=== PATIENT | male | born 1945 | race Caucasian/White ===

== ENCOUNTER 2016-06-04 18:28 | Inpatient (IN) | payer MEDICARE, OTHER ==
[2016-06-04] MEDS ORDERED: Cilostazol 100 MG TAB PO ONE (18:50)
--- NOTE | 2016-06-04 18:53 | EDPRACDOC ---
- General Information Chief Complaint: Chest Pain Stated Complaint: CP PULSE RATE UP WITH PAIN IN NECK Time Seen by Provider: 06/04/16 18:45 Mode of Arrival: Car Home Medications: Home Medications Clopidogrel Bisulfate [Plavix] 75 mg PO DAILY 07/17/12 Fenofibrate,Micronized [Fenofibrate] 200 mg PO DAILY 07/17/12 Rosuvastatin Calcium [Crestor] 40 mg PO DAILY 07/17/12 Ubidecarenone [Co Q-10] 200 mg PO DAILY 12/22/14 Albuterol Sulfate [Proventil (Concentrate)] 0.5 ml NEB Q4-6H PRN 02/09/15 Cilostazol [Pletal] 50 mg PO BID 02/09/15 Tamsulosin HCl [Flomax] 0.4 mg PO DAILY 06/04/16 Allergies/Adverse Reactions: Allergies Allergy/AdvReac Type Severity Reaction Status Date / Time aspirin Allergy Mild Anaphylaxis Verified 06/04/16 19:15 * - History of Present Illness Onset: 30 min HPI: PATIENT PRESENTS WITH SOB AND LEFT SIDED CHEST PAIN THAT BEGAN WITH REST. PATIENT HAS A HX OF CAD AND HAD A STENT PLACED IN DECEMBER OF THIS LAST YEAR. PATIENT WAS DUE TO HAVE AN ABLATION FOR SVT IN THE NEXT WEEK. HE HAS BEEN HOLDING HIS PLETAL DUE TO THIS. STATES HE HAS ANAPHYLAXIS TO ASPIRIN. Chest Pain Location: Reports: Left Chest Pain Radiation: Reports: None Symptoms Occur: Reports: Suddenly Cardiac Risk Factors: Reports: Smoker, Family History, Hyperlipidemia, Hypertension Prehospital Care: Reports: None Pain Came On: Reports: Suddenly Pain Status: Resolved Pain Description: Reports: Pressure Pain Severity: Mild Pain Worsens With: Reports: Nothing Pain Improves With: Reports: Nothing Associated Signs and Symptoms: Reports: SOB ED Past Medical History - History Reviewed Yes Nurses notes reviewed and agree except as marked Travel Outside of [place] in the Last 3 Months?: No - Patient Medical History Cardiac History: Reports: Coronary Artery Disease (One stent placed approximately 13 years ago.), Hypertension, Heart Attack, Cardiac Catheterization, Hypercholesterolemia, Syncope Respiratory History: Reports: COPD, Emphysema GI/ History: Denies: Renal Disease, Gastroesophageal Reflux Musculoskeletal History: Reports: Arthritis, Osteoarthritis Psychological History: Denies: Substance Use Disorder Systemic History: Denies: Cancer, Diabetes, Hypothyroidism Surgical History: Reports: Angioplasty (Single stent placed 2001), Cardiac Catheterization, Other (Pilonidalcyst removal, 1972) - Family Medical History Reports: Hypertension, Diabetes (DTR), Cardiac Disorders (Patient's mother). Denies: Cancer, Stroke - Social Medical History Smoking Status: Heavy tobacco smoker (5 or more cigarettes/day or daily pipe/ cigar) (1-2 packs daily) Social History: Denies: Substance Use Disorder ETOH: None Substance Abuse: None Lives With: Family Lives In: Home EDM Review of Systems - Review of Systems ROS Negative Except as Marked: Yes All systems reviewed and were negative except as marked Constitutional: No Symptoms Reported. negative: Fever, Chills, Weakness, Fatigue, Loss of Appetite Eyes: No Symptoms Reported. negative: Redness, Blurred Vision, Double Vision, Discharge, Pain, Light Sensitive, Photophobia Ears: No Symptoms Reported. negative: Pain, Hearing Loss, Drainage, Ear Pulling Throat: No Symptoms Reported. negative: Pain, Swelling Nose: No Symptoms Reported. negative: Congestion, Bleeding, Discharge, Injection, Swelling, Deformity, Ecchymosis, Tender, Abrasion, Laceration Mouth: No Symptoms Reported. negative: Pain, Drooling Respiratory: No Symptoms Reported. negative: Cough, Brassy Cough, Barky Cough, Shortness of Breath, Wheezing, Hemoptysis Cardiovascular: Chest Pain. negative: Cyanosis, Edema, Orthopnea, Palpitations , PND, Syncope, Skin Mottling Gastrointestinal: No Symptoms Reported. negative: Pain, Constipation, Nausea, Vomiting, Diarrhea, Melena, Formula Intolerance Genitourinary: No Symptoms Reported. negative: Dysuria, Hematuria, Frequency, Discharge, Bleeding, Testicular Pain, Neurological: No Symptoms Reported. negative: Headache, Dizziness, Seizure, Numbness, Weakness, Speech Difficulty, Gait Difficulty Musculoskeletal: No Symptoms Reported. negative: Neck, Chestwall, Ribs, Back, Shoulder, Arm, Elbow, Forearm, Wrist, Hand, Pelvis, Hip, Femur, Knee, Leg, Ankle , Foot Integumentary: No Symptoms Reported. negative: Itching, Rash, Bruising, Wound Allergic/Immunologic: No Symptoms Reported. negative: Hives, Itching Hematologic: No Symptoms Reported. negative: Lymphadenopathy, Easy Bruising, Easy Bleeding Endocrine: No Symptoms Reported. negative: Weight Gain, Weight Loss Psychiatric: No Symptoms Reported. negative: Anxiety, Depression, Hallucinations, Insomnia, Suicidal - Physical Exam Constitutional: Alert (Awake) Oriented to: Time, Person, Place Last recorded Vital Signs: Last Vital Signs Temp 98.3 F 06/04/16 18:38 Pulse 80 06/04/16 18:38 Resp 18 06/04/16 18:38 BP 182/105 H 06/04/16 18:38 Pulse Ox 95 06/04/16 18:38 Oxygen Pulse Oxygen Saturation 95 O2 Device Oxygen Flow Rate Fraction of Inspired Oxygen ( FIO2) - HEENT Head: Normal ( normocephalic) Eye Exam: Normal (PERRL, EOMI, Sclera white) Oropharynx: Normal (Pharynx:Moist without exudate,Gums-no swelling) Tympanic Membrane: Normal ENT EAC: Normal TMJ: Normal Nose: No Symptoms Reported (septum midline) Neck: Normal (FROM, trachea at midline) - Respiratory/Cardiovascular Respiratory: Diminished Cardiovascular: Normal (RRR without murmur, gallop or rub) - GI Auscultation: Normal (NABS) Palpation: Normal (Soft,No rebound or guarding, non distended) Tenderness: Non tender Stern's Sign: Negative - Bladder: Normal - Musculoskeletal Back: Normal (Non-Tender) Extremities: Normal (Normal tone, Pulses 2+ No cyanosis or edema, FROM) - Integumentary Skin: Normal, Warm, Dry Lymphatics: Normal (no adenopathy) - Neurologic Memory Impaired: Normal Motor Function: Normal (Normal tone, Pulses 2+ No cyanosis or edema, FROM) Cranial Nerve: Normal (CN II-X11 intact sensation, strength 5/5) Cerebellar: Normal Mood Description: Normal Perception: Normal - Action ASA given in the ED: No Aspirin therapy held due to: Allergy-Intolerance ASA Patient received Beta Mayi within last 24hrs: Yes - Results 06/04/16 18:55 06/04/16 18:55 - EKG EKG #1 EKG Time: 18:30 -: Yes EKG interpreted by me Rate: bpm: 86 [place]: Normal Rhythm: NSR, PVCs Block: None Hypertrophy: None ST: Normal - Departure Yes I personally saw and evaluated the patient. Disposition: Admit IP To This Hospital Condition: Fair Final Diagnosis: COPD exacerbation, Hypoxia, Unstable angina Instructions: Chest Pain (ED) Education/Counseling Given To: Patient Education/Counseling Given Regarding: Diagnosis, Treatment, Prognosis Referrals: Wallace Nickerson MD [Primary Care Provider] - One Week Decision to Admit Time: 20:19 Decision to admit date: 06/04/16 Decision to admit: from ED - Physician Consulted Hospitalist Time Called: 20:19 Provider Called: Sung Ruiz Time [employer] Returned Call: 20:19
[2016-06-04] MEDS: NITROGLYCERINE 0.4 MG TAB SL SCH ×3 (19:02→19:15)
[2016-06-04 19:04] LABS: AUTOMATED BASOPHIL 1.5 % (0-2); AUTOMATED EOSINOPHIL 3.8 % (0-5); AUTOMATED LYMPH 24.9 % (17-44); AUTOMATED MONOCYTE 8.9 % (3-10); AUTOMATED NEUTROPHIL 60.9 % (45-76); MPV 9.5 fL (7.4-10.4)
[2016-06-04 19:07] LABS: ABG Draw Site Left Radial; ALLEN'S TEST PASS; TCO2 35.1 MMOL/L (23-27)
[2016-06-04 19:18] LABS: PARTIAL THROMB. TIME 25.1 SEC (22-35); PT-INR 1.1
[2016-06-04 19:24] LABS: BLOOD UREA NITROGEN 15 MG/DL (9-20); CALC CORRECTED 9.2 MG/DL (8.4-10.2); CALCULATED OSMOLALITY 266 MOs/Kg (270-290); CHLORIDE 94 mEq/L (98-107); GLUCOSE 87 MG/DL (70-99); SODIUM LEVEL 138 mEq/L (137-146); TOTAL PROTEIN 7.5 G/DL (6.3-8.2)
--- NOTE | 2016-06-04 19:35 | DIRPT ---
CLINICAL DATA: Chest pain EXAM: PORTABLE CHEST 1 VIEW COMPARISON: 05/05/2016 FINDINGS: Cardiomediastinal silhouette is stable. Mild hyperinflation again noted. No acute infiltrate or pleural effusion. No pulmonary edema. Atherosclerotic calcifications of thoracic aorta again noted. IMPRESSION: No active disease. Hyperinflation again noted. Atherosclerotic calcifications of thoracic aorta. Electronically Signed By: Tal Chin M.D. On: 06/04/2016 19:33
[2016-06-04] MEDS ORDERED: METHYLPREDNISOLONE 125 MG/2 ML VIAL IV ONE (20:15)
[2016-06-04] MEDS ORDERED: Albuterol/Ipratropium Neb 3 ML NEB NEB ONE (20:15)
[2016-06-04] MEDS ORDERED: MORPHINE 2 MG/ML INJECTION IV PRN (20:42)
[2016-06-04] MEDS ORDERED: NITROGLYCERINE 0.4 MG TAB SL PRN ×2 (20:42→21:00)
--- NOTE | 2016-06-04 20:48 | HISTPHYS ---
- Chief Complaint chest pain - History of Present Illness PRIMARY CARE PROVIDER: Dr. Nickerson HPI: The patient is a 71 yo man with known coronary artery disease and history of stent placement December 2015, COPD, who presents with chest pain and shortness of breath. Onset: today around 5:30 pm. Duration: intermittent. Location: substernal. Radiation: to left neck. Character: Like a dull headache. Up to 3/10. No pressure or heaviness. Alleviated by: Nothing. Exacerbated by: Exertion. Associated Symptoms: Palpitations with faster heart rate in the 100s. Chest pain. Shortness of breath rosibel with exertion. Minimal coughing and non- productive. No wheezing. No fever or chills. No weight gain or leg swelling. Treatments: none at home except usual medications. Patient has a history of SVT and is scheduled to have an ablation in [place] next week (Monday). The patient has an anaphylactic reaction to aspirin per his report. - Medical History Cardiac History: Reports: Coronary Artery Disease (One stent placed approximately 13 years ago, another in 12/2015), Hypertension, Heart Attack, Cardiac Catheterization (1 stent 13 years ago, another in 12/2015), Hypercholesterolemia, Syncope, SVT (Ablation planned for May 2016) Respiratory History: Reports: COPD, Emphysema Musculoskeletal History: Reports: Arthritis, Osteoarthritis Psychological History: Denies: Substance Use Disorder OTHER HISTORY: ECHOCARDIOGRAM 2012: EF 55-60% Diastolic filling pattern indicates impaired relaxation. Trace tricuspid regurgitation. - Surgical History Reports: Angioplasty (Single stent placed 2001), Cardiac Catheterization (2 stents. Most recent 12/2015.), Other (Pilonidalcyst removal, 1971) - Medictions/Allergies Allergies aspirin Allergy (Mild, Verified 06/04/16 19:15) Anaphylaxis* SENSITIVITY Current Medication List: Reviewed Home Medications Clopidogrel Bisulfate [Plavix] 75 mg PO DAILY 07/17/12 Fenofibrate,Micronized [Fenofibrate] 200 mg PO DAILY 07/17/12 Rosuvastatin Calcium [Crestor] 40 mg PO DAILY 07/17/12 Ubidecarenone [Co Q-10] 200 mg PO DAILY 12/22/14 Albuterol Sulfate [Proventil (Concentrate)] 0.5 ml NEB Q4-6H PRN 02/09/15 Cilostazol [Pletal] 50 mg PO BID 02/09/15 Tamsulosin HCl [Flomax] 0.4 mg PO DAILY 06/04/16 - Family History Reports: Hypertension, Diabetes (DTR), Cardiac Disorders (Patient's mother). Denies: Cancer, Stroke - Social History Smoking Status: Heavy tobacco smoker (5 or more cigarettes/day or daily pipe/ cigar) (1-2 packs daily) Social History: Denies: Alcohol Use, Substance Use Disorder - Review of Systems GENERAL: No Fever, chills, or diaphoresis. Positive for fatigue/malaise. HEENT: No ear pain or discharge. No nasal discharge or bleeding. No throat pain or swelling. No eye pain or eye redness. RESPIRATORY: Shortness of breath rosibel with exertion. Minimal coughing and non- productive. No wheezing. CARDIOVASCULAR: Has chest pain and palpitations. GI: No abdominal pain, nausea, vomiting, diarrhea, constipation, or bloody stool. NEUROLOGICAL: No headache or focal weakness. INTEGUMENT: no rashes, itching, or lesions. LYMPHATIC SYSTEM: no lymph node swelling or pain. MUSCULOSKELETAL: no pain or joint swelling. GENITOURINARY: No dysuria or hematuria. ENDOCRINE: No polyuria or polydipsia. HEME: No chronic anemia, bleeding, or easy bruising. - Physical Exam Vital Signs: Initial Vitals Temperature 98.3 F 06/04/16 18:38 Pulse Rate 80 06/04/16 18:38 Respiratory Rate 18 06/04/16 18:38 Blood Pressure 182/105 H 06/04/16 18:38 Pulse Oxygen Saturation 95 06/04/16 18:38 Vital Signs - 24 hr 06/04/16 06/04/16 06/04/16 18:38 18:56 19:09 Temperature 98.3 F Pulse Rate 80 95 102 Respiratory 18 18 18 Rate Blood Pressure 182/105 H 184/89 H 136/67 Pulse Oxygen 95 88 L 94 Saturation 06/04/16 19:15 Temperature Pulse Rate 93 Respiratory 18 Rate Blood Pressure 137/70 Pulse Oxygen 93 Saturation Weight: 109.8 kg Height: 5 feet 11 inches BMI: 33.8 - Other Exam Other Exam Findings: GENERAL: Ill-appearing, well nourished, in acute distress. HEENT: Normocephalic, atraumatic; pupils equal and round. Nares patent, without discharge or bleeding. No oropharyngeal lesions or erythema. Mucous membranes are dry. NECK: is supple, no masses, trachea midline. RESPIRATORY: Clear to auscultation bilaterally. Chest wall movements are symmetric. No use of accessory muscles to breathe. No wheezing, rales, rhonchi. Markedly decreased breath sounds bilaterally. Intermittent tachypnea. CARDIOVASCULAR: Normal S1, S2. Murmur 2/6 systolic. No rubs, or gallops. PMI non-displaced. Carotids: no carotid bruits. Mild tachycardia. DP pulses 2+ bilaterally. GI: soft, nontender, non-distended, normal active bowel sounds. No hepatosplenomegaly. INTEGUMENT: Clean, dry, and intact. No rashes. No lesions. MUSCULOSKELETAL: Moving all extremities. No cyanosis. No clubbing. Edema: 1+ lower extremity edema bilaterally. NEUROLOGICAL: Cranial nerves 2-12 grossly intact. Motor 4/5 throughout. Reflexes : 2+ bilaterally. Babinski: toes downgoing bilaterally. Intact Finger to nose. Sensory grossly intact to light touch. Intact rapid alternating movements bilaterally. No pronator drift. PSYCHIATRIC: Fully oriented. Normal and appropriate affect. LYMPHATIC: No cervical lymphadenopathy. No supraclavicular lymphadenopathy. - Lab Results Laboratory Results - last 24 hr 06/04/16 06/04/16 06/04/16 18:55 18:55 18:55 WBC 8.1 RBC 5.31 Hgb 15.9 Hct 47.8 MCV 90 MCH 30.0 MCHC 33.4 RDW 14.7 H Plt Count 179 MPV 9.5 Neut % (Auto) 60.9 Lymph % (Auto) 24.9 Parker % (Auto) 8.9 Eos % (Auto) 3.8 Baso % (Auto) 1.5 Absolute Neuts (auto) 4.86 Absolute Lymphs (auto) 1.94 PT 11.3 H INR 1.1 APTT 25.1 Puncture Site pH pCO2 pO2 HCO3 Total CO2 Base Excess FiO2 % Specimen Drawn By Sodium 138 Potassium 4.1 Chloride 94 L Carbon Dioxide 36 H Anion Gap 12 BUN 15 Creatinine 0.80 Estimated GFR (MDRD) > 60 Glucose 87 Calculated Osmolality 266 L Calcium 9.0 Corrected Calcium 9.2 Total Bilirubin 0.8 AST 33 ALT 35 Alkaline Phosphatase 68 Troponin I < 0.01 [id number] Pept 171 Total Protein 7.5 Albumin 3.8 06/04/16 19:00 WBC RBC Hgb Hct MCV MCH MCHC RDW Plt Count MPV Neut % (Auto) Lymph % (Auto) Parker % (Auto) Eos % (Auto) Baso % (Auto) Absolute Neuts (auto) Absolute Lymphs (auto) PT INR APTT Puncture Site Left radial pH 7.400 pCO2 54.0 H pO2 55.0 L HCO3 33.4 H Total CO2 35.1 H Base Excess 7.0 H FiO2 % 21 Specimen Drawn By Kaytr Sodium Potassium Chloride Carbon Dioxide Anion Gap BUN Creatinine Estimated GFR (MDRD) Glucose Calculated Osmolality Calcium Corrected Calcium Total Bilirubin AST ALT Alkaline Phosphatase Troponin I [id number] Pept Total Protein Albumin - Diagnostic Findings EK beats per minute. Sinus rhythm with PACs. Reviewed EKG personally. Chest x-ray, viewed personally: EXAM: PORTABLE CHEST 1 VIEW COMPARISON: 05/05/2016 FINDINGS: Cardiomediastinal silhouette is stable. Mild hyperinflation again noted. No acute infiltrate or pleural effusion. No pulmonary edema. Atherosclerotic calcifications of thoracic aorta again noted. IMPRESSION: No active disease. Hyperinflation again noted. Atherosclerotic calcifications of thoracic aorta. - Assessment (1) COPD exacerbation J44.1 - CHRONIC OBSTRUCTIVE PULMONARY DISEASE W (ACUTE) EXACERBATION Acute Present on Admission: Yes COPD exacerbation. Plan: Nebs of Duoneb q 6 hours scheduled and albuterol q 2 hours prn. Sputum culture ordered. Consider IV ceftriaxone and IV azithromycin. IV methylprednisolone. Continuous oxygen support. (2) Chest pain R07.9 - CHEST PAIN, UNSPECIFIED Acute Present on Admission: Yes Qualifiers: Chest pain type: C Ischemic chest pain type: I Rule out myocardial infarction. Plan: Obtain cardiac enzymes x 3. Place patient on telemetry. Give patient oxygen, aspirin. Give nitroglycerin, and morphine as needed for chest pain. Give statin. Give beta-torey and MONSE-inhibitor. Stress test has been ordered for the morning. Patient has been advised, if the stress test is negative, to follow up with the primary care provider for evaluation of other potential causes of the chest pain. (3) Acute respiratory failure with hypoxia J96.01 - ACUTE RESPIRATORY FAILURE WITH HYPOXIA Acute Present on Admission: Yes With hypoxia and hypercapnea. Patient has dyspnea and is not improving. Patient's PO2 is low at 55 and pCO2 is high at 54. Plan: Place patient on oxygen by Venti Mask 40% and increase as needed. Monitor oxygen saturation levels and keep O2 sats greater than 92%. Patient may need BiPAP. (4) Tobacco abuse Z72.0 - TOBACCO USE Chronic Present on Admission: Yes Counseled to quit. (5) Lower extremity edema R60.0 - LOCALIZED EDEMA Acute Present on Admission: Yes Qualifiers: Laterality: bilateral Qualified Code(s): R60.0 - Localized edema Patient does have some lower extremity edema but his BNP is normal at 171. Plan: Consider IV Lasix if edema worsens. (6) SVT (supraventricular tachycardia) I47.1 - SUPRAVENTRICULAR TACHYCARDIA Chronic History of SVT. Patient is scheduled to have an ablation on Monday. Given that patient is acutely ill and in respiratory failure, it is unlikely that he will be able to move forward with ablation in a few days. Was supposed to stop his Pletal prior to surgery. Consulted Dr. Bradford. - Plan In summary, this patient is acutely and critically ill. The patient requires treatment of vital organ failure and measures to prevent further life- threatening deterioration of condition. Discussed case in detail with Dr. Bradford, who will be consulting on the patient. I have spent 60 min in the critical care of this patient. Case Care Discussed with: Patient, Consultants (Dr. Bradford), Nursing Staff Total Time: 60 min Critical Care: Yes Code: 291
[2016-06-04] MEDS ORDERED: UBIDECARENONE 200 MG PO SCH (21:00)
[2016-06-04] MEDS ORDERED: Vaccine Screening Complete SCH (23:00)
[2016-06-04] MEDS: ROSUVASTATIN 40 MG PO SCH (23:40)
[2016-06-05] MEDS: CARVEDILOL 3.125 MG TAB PO SCH ×3 (01:18→21:38)
[2016-06-05] MEDS: ENOXAPARIN 60 MG/0.6 ML PFS SQ SCH ×2 (01:19→17:45)
[2016-06-05] MEDS ORDERED: SIMETHICONE 80 MG TAB PO PRN (01:47)
[2016-06-05] MEDS ORDERED: TEMAZEPAM 15 MG CAP PO PRN (01:47)
[2016-06-05] MEDS ORDERED: SENNA CONCENTRATE TAB PO PRN (01:47)
[2016-06-05] MEDS ORDERED: BENZONATATE 100 MG PERLES PO PRN (01:47)
[2016-06-05] MEDS ORDERED: BISACODYL 5 MG TAB PO PRN (01:47)
[2016-06-05] MEDS ORDERED: GUAIFEN 100 MG-DEXTROMETH 10 MG PER 5 ML PO PRN (01:47)
[2016-06-05] MEDS ORDERED: ACETAMINOPHEN 325 MG/TAB TABLET PO PRN (01:47)
[2016-06-05] MEDS ORDERED: ACETAMINOPHEN 325 MG SUPP PR PRN (01:47)
[2016-06-05] MEDS ORDERED: ALBUTEROL 0.083% 3 ML NEB NEB PRN (01:47)
[2016-06-05] MEDS ORDERED: Docusate Sodium 100 MG CAP PO PRN (01:47)
[2016-06-05] MEDS ORDERED: PROMETHAZINE 25 MG/ML VIAL IV PRN (01:47)
[2016-06-05] MEDS ORDERED: CEFTRIAXONE 1 GM in D5W 100 ML IV SCH (02:00)
[2016-06-05] MEDS ORDERED: Pharmacy Order Set Alert SCH (02:00)
[2016-06-05] MEDS ORDERED: ENOXAPARIN 40 MG/0.4 ML PFS SQ SCH (02:00)
[2016-06-05] MEDS ORDERED: FUROSEMIDE 40 MG/4 ML VIAL IV ONE (02:00)
[2016-06-05] MEDS: Albuterol/Ipratropium Neb 3 ML NEB NEB SCH ×4 (02:19→20:22)
[2016-06-05] MEDS ORDERED: AZITHROMYCIN 500 MG in D5W 250 ML IV SCH (03:00)
[2016-06-05] MEDS: METHYLPREDNISOLONE 125 MG/2 ML VIAL IV SCH ×3 (05:04→21:38)
[2016-06-05 05:38] LABS: MPV 9.6 fL (7.4-10.4)
[2016-06-05 05:51] LABS: LDL (calc.) 90.2 MG/DL (<100); VLDL (calc.) 16.8 MG/DL (5-40)
[2016-06-05 05:52] LABS: BLOOD UREA NITROGEN 16 MG/DL (9-20); CALC CORRECTED 9.4 MG/DL (8.4-10.2); CALCULATED OSMOLALITY 272 MOs/Kg (270-290); CHLORIDE 95 mEq/L (98-107); GLUCOSE 183 MG/DL (70-99); SODIUM LEVEL 138 mEq/L (137-146); TOTAL PROTEIN 6.9 G/DL (6.3-8.2)
[2016-06-05] MEDS ORDERED: REGADENOSON 0.4 MG/5 ML SYRINGE IV ONE (08:00)
[2016-06-05] MEDS ORDERED: SODIUM CHLORIDE 0.9% 10 ML FLUSH FLUSH ONE (08:00)
--- NOTE | 2016-06-05 08:38 | PCM.CARDCO ---
Consultation Date: 06/05/16 Requesting Physician: Sung Ruiz Book Solicitor: Heber Bradford Consult Reason: Chest Pain - History of Present Illness He is known to our practice with a history of SVT failing anti rhythmic therapy with sotalol and CAD with PCI and stent left circumflex artery 12/22/2014 normal left ventricular ejection fraction. Other problems of included sinus bradycardia with an illness sick sinus syndrome essential hypertension diabetes COPD and dyslipidemia discharge summary from [facility] 2015 also list paroxysmally atrial fibrillation as a diagnosis he also has a history remote PCI greater than a decade ago. My office note from August 2015 describes PCI and stent in 2001 diagonal branch low HDL and recurrent syncope. Yesterday is bothered by his heart racing often on but when he checked his oxygen saturation his pulses were 80-110 per minute. Associated this he had substernal chest pain aching relieved with nitroglycerin recurred resolved by the time he came to the hospital. He has had a mild increase in exertional dyspnea but is not having with moderate activities not coughing and wheezing. He is greater than 1 year remote from his last PCI and remains on dual anti- platelet therapy other was pleased tell was recently discontinued in anticipation of EP procedures. He is not having a pattern of typical exertional angina. His serial troponins are normal EKG is normal. Chief Complaint: chest pain - Past Medical and Surgical History Cardiac History: Reports: Coronary Artery Disease (One stent placed approximately 13 years ago, another in 12/2015), Hypertension, Heart Attack, Cardiac Catheterization (Two thousand two PCI and stent diagonal December 2014 PCI and stent LCF), Hypercholesterolemia, Syncope (Sick sinus syndrome sinus bradycardia PAF and PAT), SVT (Ablation planned for May 2016) Respiratory History: Reports: COPD, Emphysema. Denies: Pneumonia GI/ History: Denies: Renal Disease, Gastroesophageal Reflux Systemic History: Denies: Cancer, Diabetes, Hypothyroidism Musculoskeletal History: Reports: Arthritis, Osteoarthritis Psychological History: Denies: Depression, Bipolar Disorder, Alcoholism, Substance Use Disorder Past Surgical History: Reports: Angioplasty (Single stent placed 2001), Cardiac Catheterization (2 stents. Most recent 12/2015.), Other (Pilonidalcyst removal, 1971) Allergies aspirin Allergy (Mild, Verified 06/04/16 19:15) Anaphylaxis* SENSITIVITY Home Medications Clopidogrel Bisulfate [Plavix] 75 mg PO DAILY 03/05/13 Fenofibrate,Micronized [Fenofibrate] 200 mg PO DAILY 07/17/12 Rosuvastatin Calcium [Crestor] 40 mg PO DAILY 07/17/12 Ubidecarenone [Co Q-10] 200 mg PO DAILY 12/22/14 Albuterol Sulfate [Proventil (Concentrate)] 0.5 ml NEB Q4-6H PRN 02/09/15 Cilostazol [Pletal] 50 mg PO BID 02/09/15 Tamsulosin HCl [Flomax] 0.4 mg PO DAILY 06/04/16 - Social History Travel Outside of [place] in the Last 3 Months?: No Smoking Status: Heavy tobacco smoker (5 or more cigarettes/day or daily pipe/ cigar) (1-2 packs daily) Social History: Denies: Alcohol Use, Substance Use Disorder - Family History Reports: Hypertension, Diabetes (DTR), Cardiac Disorders (Patient's mother). Denies: Cancer, Stroke - Review of Systems Constitutional: No Symptoms Reported. negative: Fever, Chills, Weakness, Fatigue, Loss of Appetite - Respiratory Shortness of Breath (Not severe limit). negative: Barky Cough, Cough, Wheezing (He is a nebulizer at home) - Cardiovascular Chest Pain, Palpitations (Sensation of heart racing through the day yesterday). negative: Cyanosis, Edema, Orthopnea - Physical Exam Constitutional: Alert (Awake) Oriented to: Time, Person, Place Exam: Last Vital Signs Temp 98 F 06/05/16 07:49 Pulse 94 06/05/16 07:49 Resp 20 06/05/16 07:49 BP 157/95 06/05/16 07:49 Pulse Ox 93 06/05/16 08:00 Intake & Output 06/04/16 06/05/16 06/05/16 23:59 07:59 15:59 Intake Total 120 320 Output Total 2025 Balance 120 -1705 Patient's weight 233 lb 1 oz 234 lb 8 oz - HEENT Head: Normal (No bruit neck vein distention or thyromegaly) Eye: Normal (PERRL, EOMI, Sclera white) Oropharynx: Normal (Pharynx:Moist without exudate,Gums-no swelling) Tympanic Membrane: Normal ENT EAC: Normal TMJ: Normal Nose: No Symptoms Reported (septum midline) - Respiratory/Cardiovascular Respiratory: Diminished. negative: Rales, Rhonchi, Wheezes Cardiovascular: Other (Distant heart sounds regular rhythm no murmur no gallop) . negative: Systolic murmur, Gallop/S3, Gallop/S4 - GI Auscultation: Normal (Nondistended nontender) Palpation: Normal (Soft,No rebound or guarding, non distended) Tenderness: Non tender - Musculoskeletal Back: Normal (Non-Tender) Extremities: Normal (Normal tone, Pulses 2+ No cyanosis or edema, FROM), Calf Tenderness, Clubbing, Cyanosis, Edema, Pedal Edema, Radial Pulse. negative: Femoral Pulse (Diminished bilaterally), Pedal Pulse (Diminished bilaterally) - Integumentary Skin: Normal, Other (No xanthoma or xanthelasma). negative: Pale, Petechiae Lymphatics: Normal (no adenopathy) - Neurologic Memory Impaired: Normal Cerebellar: Normal Mood Description: Normal Perception: Normal - Lab Results Laboratory Tests 06/04/16 06/04/16 06/04/16 18:55 19:00 21:30 WBC Hgb Hct pH 7.400 pCO2 54.0 H pO2 55.0 L Potassium Creatinine Estimated GFR (MDRD) Troponin I < 0.01 < 0.01 LDL Cholesterol, Calc 06/05/16 06/05/16 06/05/16 05:08 05:08 05:08 WBC 6.1 Hgb 15.1 Hct 45.3 pH pCO2 pO2 Potassium 4.2 Creatinine 0.80 Estimated GFR (MDRD) > 60 Troponin I LDL Cholesterol, Calc 90.2 EKG today normal. He has not had ischemic ST-T changes - Assessment/Plan (1) Chest pain R07.9 - CHEST PAIN, UNSPECIFIED Acute unspecified I R07.9 - Chest pain, unspecified Comment: Best described is atypical angina, he has undergone myocardial perfusion imaging and he has evidence of ischemia at require coronary arteriography prior to his EP procedures. I will wait results and continues current medical therapy with single anti-platelet clopidogrel, beta-torey and a high intensity statin. He is greater 1 year remote from his PCI and I do not think he will need to remain on dual anti-platelet night continue on long-term on clopidogrel with his aspirin intolerance. (2) SVT (supraventricular tachycardia) I47.1 - SUPRAVENTRICULAR TACHYCARDIA Chronic Present on Admission: No Comment: Telemetry short strip show assured a short episode of atrial tachycardia not rapid I suspect this is what is happening at home and apical continue his low- dose beta-torey and await his EP procedures for paroxysmally atrial fibrillation. (3) Coronary artery disease I25.10 - ATHSCL HEART DISEASE OF [place] CORONARY ARTERY W/O ANG PCTRS Chronic [place] coronary artery [place] heart with unstable angina pectoris Comment: Continue current treatment away results of myocardial perfusion study. He is not having acute coronary syndrome (4) Hypercholesterolemia E78.0 - PURE HYPERCHOLESTEROLEMIA * DO NOT USE * Chronic Comment: Stable continue statin (5) Hypertension I10 - ESSENTIAL (PRIMARY) HYPERTENSION Chronic essential hypertension I10 - Essential (primary) hypertension Comment: Stable new treatment including MONSE-inhibitor with CAD
[2016-06-05] MEDS ORDERED: Non-Formulary Medication ITEM (Fenofibrate,Micronized [Fenofibrate] 200 MG) PO SCH (09:00)
[2016-06-05] MEDS ORDERED: SESTAMIBI 8 MCI V IV ONE (09:43)
[2016-06-05] MEDS: CLOPIDOGREL 75 MG TAB PO SCH (12:22)
[2016-06-05] MEDS: FENOFIBRATE 145 MG TAB PO SCH (12:22)
[2016-06-05] MEDS: LISINOPRIL 5 MG TAB PO SCH (12:22)
[2016-06-05] MEDS: Cilostazol 100 MG TAB PO SCH ×2 (12:23→17:45)
[2016-06-05] MEDS: TAMSULOSIN HCL 0.4 MG CAP PO SCH (12:23)
--- NOTE | 2016-06-05 13:10 | DIRPT ---
CLINICAL DATA: Chest pain EXAM: NM LEXISCAN CARDIOLITE TECHNIQUE: Cardiolite cardiac stress Test Lexiscan protocol RADIOPHARMACEUTICALS: Eight in 25 millicuries TC 99 M Cardiolite COMPARISON: None. FINDINGS: A Cardiolite cardiac stress Test Lexiscan protocol was performed. The stress portion of the test was supervised by Dr. Bradford. I reviewed the images with him. There is inferior basal wall scarring. Inferior basal hypokinesia. Ischemia is noted inferior apical wall. Normal contractility. Left ventricle ejection fraction is 68%. IMPRESSION: There is inferior basal wall scarring. Inferior basal hypokinesia. Ischemia is noted inferior apical wall. Normal contractility. Left ventricle ejection fraction is 68%. Electronically Signed By: Tal Chin M.D. On: 06/05/2016 13:07
--- NOTE | 2016-06-05 14:13 | PCM.STRESS ---
This is a Lexiscan Cardiolite test. Patient received a standard dose of Lexiscan. The resting heart rate and blood pressure, 97 beats per minute 120/80. The resting EKG shows sinus rhythm and is normal. The peak heart rate and blood pressure, 108 beats per minute 126/82. The stress EKG ST segment response is normal to 73% of the maximum predicted heart rate of 147 beats per minute. The blood pressure response is normal. The rhythm is sinus, there is no arrhythmia. Symptoms present include flushing and shortness of breath transiently. The radiologist will generate the Cardiolite image report.
--- NOTE | 2016-06-05 15:32 | GENMEDPROG ---
Chief Complaint: Right side chest pain and shortness of breath with minimal exertion. Notes Reviewed: Yes Events from last night noted and discussed with Clinical Staff Current Medication List: Reviewed DVT Prophylaxis: Yes - Physical Examination Vital Signs and I&O: Last Vital Signs Temp 97.6 F 06/05/16 11:42 Pulse 103 06/05/16 14:00 Resp 20 06/05/16 11:42 BP 164/87 06/05/16 11:42 Pulse Ox 95 06/05/16 11:42 Oxygen Pulse Oxygen Saturation 95 O2 Device Nasal Cannula Oxygen Flow Rate 3 Fraction of Inspired Oxygen ( FIO2) Intake & Output 06/02/16 06/03/16 06/04/16 06/05/16 23:59 23:59 23:59 23:59 Intake Total 120 320 Output Total 2225 Balance 120 -1905 Patient's weight 105.715 kg 106.367 kg General: Alert, Oriented x3, No acute distress, Well appearing, Well nourished HEENT: Normal (Normocephalic, atraumatic;EOMI.Sclera white, Nares patent, without discharge or bleeding. No oropharyngeal lesions or erythema. Mucous membranes are dry.) Neck: Non-tender, Normal Trachea alignment, Normal inspection (No cervical lymphadenopathy. No supraclavicular lymphadenopathy.), No Masses palpable, Limited range of motion, Supple Lymphatics: Normal (no adenopathy) Respiratory: Diminished. negative: Rales, Rhonchi, Wheezes Cardiovascular: Normal S1, No Gallops,Rubs/Murmurs, Normal S2, Good Pedal Pulses (DP pulses 2+ bilaterally), Irregular. negative: Regular rate and rhythm GI: Normal bowel sounds (normal active sounds), Soft (non-distended), Non tender , No hepatospenomegaly. negative: No masses (Right upper quadrant fullness) Extremities/Musculoskeletal: Normal pulses (DP pulses 2+ bilaterally) Skin: Warm,Dry and Intact, No rashes, No significant lesion Neurological: Strength at 5/5 X4 ext (Motor 5/5 throughout.), Normal tone, Cranial nerves 3-12 NL ( 2-12 grossly intact.) Psych/Mental Status: Appropriate, Normal Affect Lab/DI/Studies Reviewed: 06/05/16 05:08 06/05/16 05:08 Laboratory Results - last 24 hr 01/06/04/16 06/04/16 18:55 18:55 18:55 WBC 8.1 RBC 5.31 Hgb 15.9 Hct 47.8 MCV 90 MCH 30.0 MCHC 33.4 RDW 14.7 H Plt Count 179 MPV 9.5 Neut % (Auto) 60.9 Lymph % (Auto) 24.9 [place] % (Auto) 8.9 Eos % (Auto) 3.8 Baso % (Auto) 1.5 Absolute Neuts (auto) 4.86 Absolute Lymphs (auto) 1.94 PT 11.3 H INR 1.1 APTT 25.1 Puncture Site pH pCO2 pO2 HCO3 Total CO2 Base Excess FiO2 % Specimen Drawn By Sodium 138 Potassium 4.1 Chloride 94 L Carbon Dioxide 36 H Anion Gap 12 BUN 15 Creatinine 0.80 Estimated GFR (MDRD) > 60 Glucose 87 Calculated Osmolality 266 L Calcium 9.0 Corrected Calcium 9.2 Total Bilirubin 0.8 AST 33 ALT 35 Alkaline Phosphatase 68 Troponin I < 0.01 [id number] Pept 171 Total Protein 7.5 Albumin 3.8 Triglycerides Cholesterol LDL Cholesterol, Calc VLDL Cholesterol, Calc HDL Cholesterol Cholesterol/HDL Ratio 06/04/16 06/04/16 06/05/16 19:00 21:30 01:00 WBC RBC Hgb Hct MCV MCH MCHC RDW Plt Count MPV Neut % (Auto) Lymph % (Auto) Winston % (Auto) Eos % (Auto) Baso % (Auto) Absolute Neuts (auto) Absolute Lymphs (auto) PT INR APTT Puncture Site Left radial pH 7.400 pCO2 54.0 H pO2 55.0 L HCO3 33.4 H Total CO2 35.1 H Base Excess 7.0 H FiO2 % 21 Specimen Drawn By Kaytr Sodium Potassium Chloride Carbon Dioxide Anion Gap BUN Creatinine Estimated GFR (MDRD) Glucose Calculated Osmolality Calcium Corrected Calcium Total Bilirubin AST ALT Alkaline Phosphatase Troponin I < 0.01 < 0.01 [id number]-Zwhkchnmnog Pept Total Protein Albumin Triglycerides Cholesterol LDL Cholesterol, Calc VLDL Cholesterol, Calc HDL Cholesterol Cholesterol/HDL Ratio 06/05/16 06/05/16 06/05/16 05:08 05:08 05:08 WBC 6.1 RBC 5.03 Hgb 15.1 Hct 45.3 MCV 90 MCH 30.1 MCHC 33.3 RDW 14.7 H Plt Count 168 MPV 9.6 Neut % (Auto) Lymph % (Auto) [place] % (Auto) Eos % (Auto) Baso % (Auto) Absolute Neuts (auto) Absolute Lymphs (auto) PT INR APTT Puncture Site pH pCO2 pO2 HCO3 Total CO2 Base Excess FiO2 % Specimen Drawn By Sodium 138 Potassium 4.2 Chloride 95 L Carbon Dioxide 32 Anion Gap 15 BUN 16 Creatinine 0.80 Estimated GFR (MDRD) > 60 Glucose 183 H Calculated Osmolality 272 Calcium 9.0 Corrected Calcium 9.4 Total Bilirubin 0.6 AST 27 ALT 33 Alkaline Phosphatase 62 Troponin I [id number] Pept Total Protein 6.9 Albumin 3.6 Triglycerides 84 Cholesterol 140 LDL Cholesterol, Calc 90.2 VLDL Cholesterol, Calc 16.8 HDL Cholesterol 33.0 L Cholesterol/HDL Ratio 4.2 - Assessment (1) Coronary artery disease Chronic I25.10 - ATHSCL HEART DISEASE OF [place] CORONARY ARTERY W/O ANG PCTRS Qualifiers: Coronary Disease-Associated Artery/Lesion type: circle coronary artery Associated angina: with unstable angina pectoris Comment/Plan: The patient has history of coronary artery disease status post angioplasty and single stent placement approximately 13 years ago in [place]. Patient had a positive nuclear stress test suggesting inferior wall ischemia warranting cardiac catheterization tomorrow morning. (2) Acute respiratory failure with hypoxia Acute J96.01 - ACUTE RESPIRATORY FAILURE WITH HYPOXIA Comment/Plan: With hypoxia and hypercapnea noted on previous blood gas. Careful with the Supplemental O2 as ordered. (3) SVT (supraventricular tachycardia) Chronic I47.1 - SUPRAVENTRICULAR TACHYCARDIA Comment/Plan: History of SVT. Patient was scheduled to have an ablation on Monday. This will have to be postponed until cardiac catheterization done tomorrow resolving the issue of the positive nuclear stress test suggesting inferior ischemia. (4) Chest pain Acute R07.9 - CHEST PAIN, UNSPECIFIED Qualifiers: Chest pain type: unspecified Ischemic chest pain type: I Qualified Code(s ): R07.9 - Chest pain, unspecified Comment/Plan: Negative CPK and troponins but positive nuclear stress test for inferior ischemia. Patient will need cardiac catheterization and Dr. Bradford will arrange for tomorrow morning. (5) Hypercholesterolemia Chronic E78.0 - PURE HYPERCHOLESTEROLEMIA * DO NOT USE * Comment/Plan: Continue with statin therapy as before. (6) Hypertension Chronic I10 - ESSENTIAL (PRIMARY) HYPERTENSION Qualifiers: Hypertension type: essential hypertension Qualified Code(s): I10 - Essential (primary) hypertension Comment/Plan: Somewhat elevated blood pressure will watch his blood pressure carefully will adjust medication as needed.. (7) Tobacco abuse Chronic Z72.0 - TOBACCO USE Comment/Plan: Counseled to quit. Advised patient quit and spent 7 minutes discussing such. Case Care Discussed with: Patient, Nursing Staff, Resource Management Education/Counseling Given To: Patient Education/Counseling Given Regarding: Diagnosis Total Time: 36 min plus additional 7 min discussing smoking cessation Critical Care: No Code: 77390 (12+) (406)
[2016-06-05] MEDS ORDERED: PROBIOTIC BLEND TAB PO SCH (18:00)
[2016-06-05] MEDS: ROSUVASTATIN 40 MG PO SCH (21:38)
[2016-06-06] MEDS: Albuterol/Ipratropium Neb 3 ML NEB NEB SCH ×2 (02:05→08:15)
[2016-06-06 04:34] VITALS: BMI 32.5
[2016-06-06] MEDS: METHYLPREDNISOLONE 125 MG/2 ML VIAL IV SCH (05:20)
--- NOTE | 2016-06-06 07:42 | PCM.DCS92 ---
- Final/Secondary Discharge Diagnosis (1) Coronary artery disease Chronic I25.10 - ATHSCL HEART DISEASE OF [place] CORONARY ARTERY W/O ANG PCTRS Present on Admission: Yes [place] coronary artery N with unstable angina pectoris Comment: The patient has history of coronary artery disease status post angioplasty and single stent placement approximately 13 years ago in [place]. Patient had a positive nuclear stress test suggesting inferior wall ischemia warranting cardiac catheterization tomorrow morning. (2) Acute respiratory failure with hypoxia Acute J96.01 - ACUTE RESPIRATORY FAILURE WITH HYPOXIA Present on Admission: Yes Comment: With hypoxia and hypercapnea noted on previous blood gas. Careful with the Supplemental O2 as ordered. (3) SVT (supraventricular tachycardia) Chronic I47.1 - SUPRAVENTRICULAR TACHYCARDIA Present on Admission: No Comment: History of SVT. Patient was scheduled to have an ablation on Monday. This will have to be postponed until cardiac catheterization done tomorrow resolving the issue of the positive nuclear stress test suggesting inferior ischemia. (4) Chest pain Acute R07.9 - CHEST PAIN, UNSPECIFIED Present on Admission: Yes unspecified I R07.9 - Chest pain, unspecified Comment: Negative CPK and troponins but positive nuclear stress test for inferior ischemia. Patient will need cardiac catheterization and Dr. Bradford will arrange for tomorrow morning. (5) Hypercholesterolemia Chronic E78.0 - PURE HYPERCHOLESTEROLEMIA * DO NOT USE * Present on Admission: Yes Comment: Continue with statin therapy as before. (6) Hypertension Chronic I10 - ESSENTIAL (PRIMARY) HYPERTENSION Present on Admission: Yes essential hypertension I10 - Essential (primary) hypertension Comment: Somewhat elevated blood pressure will watch his blood pressure carefully will adjust medication as needed.. (7) Tobacco abuse Chronic Z72.0 - TOBACCO USE Present on Admission: Yes Comment: Counseled to quit. Advised patient quit and spent 7 minutes discussing such. Discharge Disposition: Trans. to Other Hospital Discharge Condition: Improved Cognitive Discharge Status: Unimpaired Fuctional Discharge Status: Independent Physician Follow up/Referrals: Wallace Nickerson MD [Primary Care Provider] - One Week Heber Bradford MD [Staff Physician] - Listed Time Home Medications / New Prescriptions: New Carvedilol [Coreg] 3.125 mg PO BID #60 tablet Lisinopril [Zestril] 5 mg PO DAILY #30 tablet Nitroglycerin Sublingual Tab [NTG (NitroStat Sublingual Tab)] 0.4 mg SL Q5M # 30 tablet Continue Rosuvastatin Calcium [Crestor] 40 mg PO DAILY Clopidogrel Bisulfate [Plavix] 75 mg PO DAILY Fenofibrate,Micronized [Fenofibrate] 200 mg PO DAILY Ubidecarenone [Co Q-10] 200 mg PO DAILY Albuterol Sulfate [Proventil (Concentrate)] 0.5 ml NEB Q4-6H PRN PRN Reason: Shortness Of Breath Cilostazol [Pletal] 50 mg PO BID Tamsulosin HCl [Flomax] 0.4 mg PO DAILY Discharge Home Medication List Clopidogrel Bisulfate [Plavix] 75 mg PO DAILY 07/17/12 [History Confirmed Last Taken 06/03/16] Fenofibrate,Micronized [Fenofibrate] 200 mg PO DAILY 07/17/12 [History Confirmed 06/04/16 Last Taken 06/03/16] Rosuvastatin Calcium [Crestor] 40 mg PO DAILY 07/17/12 [History Confirmed Last Taken 06/03/16] Ubidecarenone [Co Q-10] 200 mg PO DAILY 12/22/14 [History Confirmed 06/04/16 Last Taken 06/03/16 250] Albuterol Sulfate [Proventil (Concentrate)] 0.5 ml NEB Q4-6H PRN 02/09/15 [ History Confirmed 06/04/16 Last Taken Unknown] Cilostazol [Pletal] 50 mg PO BID 02/09/15 [History Confirmed 06/04/16 Last Taken 06/04/16] Tamsulosin HCl [Flomax] 0.4 mg PO DAILY 06/04/16 [History Confirmed 06/04/16 Last Taken 06/03/16] Carvedilol [Coreg] 3.125 mg PO BID #60 tablet 06/06/16 [Rx Last Taken Unknown] Lisinopril [Zestril] 5 mg PO DAILY #30 tablet 06/06/16 [Rx Last Taken Unknown] Nitroglycerin Sublingual Tab [NTG (NitroStat Sublingual Tab)] 0.4 mg SL Q5M #30 tablet 06/06/16 [Rx Last Taken Unknown] 06/05/16 05:08 06/05/16 05:08 O2 Device: Nasal Cannula Diet at Discharge: Cardiac, Heart Healthy Activity: As Tolerated Discontinue use of:: Alcohol, All Types of Tobacco - DC Summary Notes HPI/Notes: The patient is a 71 yo man with known coronary artery disease and history of stent placement December 2015, COPD, who presents with chest pain and shortness of breath. Onset: today around 5:30 pm. Duration: intermittent. Location: substernal. Radiation: to left neck. Character: Like a dull headache. Up to 3/10. No pressure or heaviness. Alleviated by: Nothing. Exacerbated by: Exertion. Associated Symptoms: Palpitations with faster heart rate in the 100s. Chest pain. Shortness of breath rosibel with exertion. Minimal coughing and non- productive. No wheezing. No fever or chills. No weight gain or leg swelling. Treatments: none at home except usual medications. Patient has a history of SVT and is scheduled to have an ablation in [place] next week (Monday). The patient has an anaphylactic reaction to aspirin per his report. Dr. Bradford's consultation is as follows: He is known to our practice with a history of SVT failing anti rhythmic therapy with sotalol and CAD with PCI and stent left circumflex artery 12/22/2014 normal left ventricular ejection fraction. Other problems of included sinus bradycardia with an illness sick sinus syndrome essential hypertension diabetes COPD and dyslipidemia discharge summary from [facility] 2015 also list paroxysmally atrial fibrillation as a diagnosis he also has a history remote PCI greater than a decade ago. My office note from August 2015 describes PCI and stent in 2001 diagonal branch low HDL and recurrent syncope. Yesterday is bothered by his heart racing often on but when he checked his oxygen saturation his pulses were 80-110 per minute. Associated this he had substernal chest pain aching relieved with nitroglycerin recurred resolved by the time he came to the hospital. He has had a mild increase in exertional dyspnea but is not having with moderate activities not coughing and wheezing. He is greater than 1 year remote from his last PCI and remains on dual anti- platelet therapy other was pleased tell was recently discontinued in anticipation of EP procedures. He is not having a pattern of typical exertional angina. His serial troponins are normal EKG is normal. Hospital Course Note:: Discharge summary on patient named SVITLANA FAJARDO admitted to [facility] on 06/04/16 by Sung Ruiz MD. Date of discharge is 06/06/2016. Patient was admitted with chest pain and had nuclear stress test done the following morning which was positive for apical ischemia. She was seen in consultation Dr. Bradford who recommended cardiac catheterization and patient is being transferred today for that to be done at [facility]. CC: Dr. Krishan Bradford Total Time: 38 min Code: 52900 (>30min.) - Physical Exam Vital Signs: Last Vital Signs Temp 97.6 F 06/06/16 04:32 Pulse 69 06/06/16 06:00 Resp 18 06/06/16 04:32 BP 120/72 06/06/16 04:32 Pulse Ox 93 06/06/16 04:32 Oxygen Pulse Oxygen Saturation 93 O2 Device Nasal Cannula Oxygen Flow Rate 3 Fraction of Inspired Oxygen ( FIO2) Constitutional: Alert (Awake) Oriented to: Time, Person, Place - HEENT Head: Normal (No bruit neck vein distention or thyromegaly) Eye: Normal (PERRL, EOMI, Sclera white) Oropharynx: Normal (Pharynx:Moist without exudate,Gums-no swelling) Tympanic Membrane: Normal ENT EAC: Normal TMJ: Normal Nose: No Symptoms Reported (septum midline) - Respiratory/Cardiovascular Respiratory: Diminished. negative: Rales, Rhonchi, Wheezes Cardiovascular: Normal (RRR , Normal S1, S2. No murmurs, rubs, or gallops. PMI non-displaced. Carotids: no carotid bruits. No bradycardia or tachycardia. DP pulses 2+ bilaterally.) - GI Auscultation: Normal (Nondistended nontender) Palpation: Normal (Soft,No rebound or guarding, non distended) Tenderness: Non tender - Musculoskeletal Back: Normal (Non-Tender) Extremities: Normal (Normal tone, Pulses 2+ No cyanosis or edema, FROM), Calf Tenderness, Clubbing, Cyanosis, Edema, Pedal Edema, Radial Pulse. negative: Femoral Pulse (Diminished bilaterally), Pedal Pulse (Diminished bilaterally) - Integumentary Skin: Normal (Warm dry no rashes) Lymphatics: Normal (no adenopathy) - Neurologic Memory Impaired: Normal Motor Function: Normal (Motor 5/5 throughout.Normal tone, Pulses 2+ No cyanosis or edema, FROM) Cranial Nerve: Normal (CN II-XII intact sensation, strength 5/5) Cerebellar: Normal. negative: Ataxia, Past-Pointing, Tremor Mood Description: Normal, Appropriate. negative: Anxious, Agitated Thought: Coherent Perception: Normal
[2016-06-06] MEDS: Cilostazol 100 MG TAB PO SCH (07:49)
[2016-06-06] MEDS: FENOFIBRATE 145 MG TAB PO SCH (07:49)
[2016-06-06] MEDS: TAMSULOSIN HCL 0.4 MG CAP PO SCH (07:50)
[2016-06-06] MEDS: CARVEDILOL 3.125 MG TAB PO SCH (07:50)
[2016-06-06] MEDS: LISINOPRIL 5 MG TAB PO SCH (07:50)
[2016-06-06] MEDS: CLOPIDOGREL 75 MG TAB PO SCH (07:50)
--- NOTE | 2016-06-06 08:24 | PCM.CARD ---
- Subjective Reason for visit: Follow up abnormal stress test before cardiac catheterization Denies having any chest pain during the night. Vital Signs: Last Vital Signs Temp 97.6 F 06/06/16 04:32 Pulse 89 06/06/16 08:00 Resp 18 06/06/16 08:00 BP 120/72 06/06/16 04:32 Pulse Ox 93 06/06/16 08:00 PE: General Appearance: Well developed. Well nourished. In no acute distress. Lungs: Chest was not overinflated. Clear to auscultation. Cardiovascular: Jugular Venous Distention: JVD not increased. Heart Rate And Rhythm: Normal. Heart Sounds: Normal. Murmurs: No murmurs were heard. Carotid Arteries: Carotid pulses were normal. No bruit in the carotid artery. Edema: Not present. Lower extremities pulses normal (including femoral popliteal and dorsalis pedis) . Musculoskeletal System: General/bilateral: No cyanosis of the fingers. Neurological: Oriented to time, place, and person. Nails: No clubbing of the fingernails. - Plan I cannot access the list of assessment and plan. 1. Coronary artery disease with atypical chest pain and abnormal stress test showing ischemia involving inferior wall. Patient was stable overnight. He is to be transferred today to [facility] for cardiac catheterization. Procedure was explained to him including all risk benefits as well as alternatives. Will proceed. 2. Supra ventricle tachycardia: After cardiac catheterization he will required to see electrophysiology team with consideration of alteration of medical therapy or ablation. 3. Dyslipidemia: Will continue with statin.
[2016-06-06 08:38] VITALS: BP 149/78; PULSE 90; TEMP 97.7
--- NOTE | 2016-06-06 10:30 | CAPUEKG ---
[place], [place] Test Date: 2016-06-05 Pat Name: SVITLANA FAJARDO Department: Room: 449 Gender: Male [employer]: : Requested By: Order Number: Reading MD: Sebastián Rojas MD Measurements Intervals [place] Rate: 93 P: 62 IA: 172 QRS: 44 QRSD: 74 T: 63 QT: 380 QTc: 472 Interpretive Statements Normal sinus rhythm Normal ECG Electronically Signed On 06-06-16 10:29:42 EST by Sebastián Rojas MD <[id number]> [id number]
== END 2016-06-06 09:00 | disposition short-term general hospital (02) | DRG 302 ==
LOC: ED 18:28 → PCU 20:41
PROVIDERS: ADMIT Internal Medicine; ATTEND Internal Medicine
DX: I25.110 Atherosclerotic heart disease of native coronary artery with unstable angina pectoris (principal); J96.01 Acute respiratory failure with hypoxia; I47.1 Supraventricular tachycardia; I25.10 Atherosclerotic heart disease of native coronary artery without angina pectoris; I25.2 Old myocardial infarction; I10 Essential (primary) hypertension; R03.0 Elevated blood-pressure reading, without diagnosis of hypertension; F17.210 Nicotine dependence, cigarettes, uncomplicated; E78.00 Pure hypercholesterolemia, unspecified; Z71.6 Tobacco abuse counseling; J44.9 Chronic obstructive pulmonary disease, unspecified; I49.5 Sick sinus syndrome; Z95.5 Presence of coronary angioplasty implant and graft; I25.9 Chronic ischemic heart disease, unspecified
CPT/HCPCS: 36415; 36600; 71010; 78452; 80053; 80061; 82803; 83880; 84484; 85025; 85027; 85610; 85730; 87040; 87086; 93005; 93017; 94640; 96372; 96374; 98960; 99284; 99406; A4216; A9500; J0456; J0696; J1650; J1940; J2785; J2930; J3490; J7060; J7070; J7620